=== PATIENT | male | born 1985 | race Caucasian/White ===

== ENCOUNTER 2024-04-24 18:42 | Emergency (ER) | payer OTHER, SELFPAY ==
[2024-04-24 18:48] VITALS: BP 117/89; PULSE 65; TEMP 36.8; O2SAT 95; BMI 30.4
--- NOTE | 2024-04-24 18:57 | CT_ITS ---
[address] [address] Patient Name: BEAU LEAVITT MRN: [id number] date: 1985 Sex: M Assigned Patient Location: Current Patient Location: Accession/Order Number: [id number] Exam Date: 04/24/2024 09:15 Report Date: 04/24/2024 20:33 At the request of: ANAMARIA MARTINEZ Procedure: CT soft tissue neck wo con EXAM: CT soft tissue neck wo con; [id number] REASON FOR EXAM: lump on right neck TECHNIQUE: Helical CT images of the neck obtained without IV contrast. Coronal and sagittal reconstructions were generated at the scanner. Dose reduction technique used: Automated exposure control and/or adjustment of the mA and/or kV according to patient size and/or use of iterative reconstruction technique. COMPARISON: None. FINDINGS: Note: Compared with contrasted CT exams, noncontrast images are less sensitive for the detection of various types of soft tissue, solid organ, and vascular pathologies. Visualized intracranial contents: Within normal limits. Orbits: Within normal limits. Sinuses: Moderate sized left mucus retention cyst versus polyp. No layering sinus fluid. Stunt Person space: Within normal limits. Buccal space: Within normal limits. Parotid space: No mass, stone, or acute inflammatory changes. Submandibular space: Within normal limits. Sublingual space: Within normal limits. Submental space: Within normal limits. Oral cavity: Within normal limits. Pharynx/Pharyngeal mucosal space: Incidentally noted small right posterolateral tracheal diverticulum at the thoracic inlet measuring up to 3 mm. Parapharyngeal space: Within normal limits. Retropharyngeal space: No abnormal thickening. Carotid space: Within normal limits. Perivertebral space: Within normal limits. Visceral space: -No thyroid nodules. Lymph nodes: No lymphadenopathy by size criteria. Superficial soft tissues of the neck: Within normal limits. Lung apices: Clear. Osseous: -No acute osseous abnormality. -No suspicious osseous lesion. -Maloccluded right maxillary molar. -Periapical lucency involving the single remaining left maxillary molar. Numerous cavities of the remaining mandibular teeth. -Mild cervical spondylosis likely resulting in mild spinal canal narrowing at C5-C6. No significant facet arthropathy or osseous foraminal narrowing. CT/CT soft tissue neck wo con IMPRESSION: Negative exam. No structural correlate for the right neck lump demonstrated. Electronically authenticated by: NOLA MCNEIL Date: 04/24/2024 20:33
--- NOTE | 2024-04-24 18:59 | ED.GENADUL1 ---
HPI HPI - General Adult General Chief complaint: Extremity Problem, Nontraumatic Stated complaint: Upper Pain Time Seen by Provider: 04/24/24 18:48 Source: patient Mode of arrival: walk-in Limitations: no limitations History of Present Illness HPI narrative: Patient is a 39-year-old male who presents to the emergency department for a 1 week history of pain intermittently associated with tingling to the right arm. He denies any change in symptoms today to prompt him to come to the ER. He states the discomfort is worse at nighttime. 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 He reports associated pain in the right trapezius area of the neck as well as a concerning lump to the right side of the neck. He has had no fevers, upper respiratory symptoms. No back pain, lower extremity pain or paresthesia. No urinary symptoms. No medications taken prior to arrival. He is right-hand dominant. Related Data Allergies Allergy/AdvReac Type Severity Reaction Status Date / Time No Known Drug Allergies Allergy Verified 04/24/24 18:48 Opioid HPI Opioid Management Most Recent Opioid Data: Last Pain Scale 8 04/24/24 19:34 Last MAR Pain Assessment 04/24/24 19:34 Review of Systems ROS Constitutional Denies: fever or chills Ears, nose, mouth, and throat Denies: throat pain or nasal congestion Respiratory Denies: shortness of breath Gastrointestinal Denies: nausea or vomiting Musculoskeletal Reports: neck pain and extremity pain; Denies: back pain Integumentary/Breast Denies: rash Neurological Reports: numbness in extremities; Denies: headache Hematologic/Lymphatic Denies: easy bruising or easy bleeding Exam Narrative Exam Narrative: Gen.: Awake, alert, in no distress Head: Normocephalic, atraumatic ENT: Moist mucous membranes, Palpable lymphadenopathy to the right neck with no overlying erythema or induration. Diffuse tenderness of the Paracervical muscles on the right side of the neck into the right trapezius. No obvious deformity. No posterior midline tenderness of the Respiratory: No respiratory distress Gastrointestinal: Abdomen is soft, nondistended and nontender to palpation Extremities: Moves extremities equally, Normal printed circuit boards contact printer strength in the bilateral hands, normal flexion and extension at the bilateral elbows with normal biceps tendon strength, normal shoulder abduction. Psych: Normal mood and affect Neuro: No focal neuro deficit Skin: Warm, dry, intact Constitutional Vital Signs, click to edit/add: Last Vital Signs Temp 98.3 F 04/24/24 18:48 Pulse 65 04/24/24 18:48 Resp 16 04/24/24 18:48 BP 117/89 04/24/24 18:48 Pulse Ox 95 04/24/24 18:48 O2 Del Method Room Air 04/24/24 18:48 Course Vital Signs Vital signs: Vital Signs Temperature 98.3 F 04/24/24 18:48 Pulse Rate 65 04/24/24 18:48 Respiratory Rate 16 04/24/24 18:48 Blood Pressure 117/89 04/24/24 18:48 Pulse Oximetry 95 04/24/24 18:48 Oxygen Delivery Method Room Air 04/24/24 18:48 Temperature 98.3 F 04/24/24 18:48 Pulse Rate 65 04/24/24 18:48 Respiratory Rate 16 04/24/24 18:48 Blood Pressure 117/89 04/24/24 18:48 Pulse Oximetry 95 04/24/24 18:48 Oxygen Delivery Method Room Air 04/24/24 18:48 Medical Decision Making MDM Narrative Medical decision making narrative: I evaluated the patient At initial interview, he has no focal neurodeficits and is able to move his extremities with no difficulty, no evidence of vascular compromise to the right upper extremity. Palpable lymphadenopathy noted to the right side of the neck. I recommended that we sent the patient for CT of the soft tissue of the neck with recon of the cervical spine for cervical radiculopathy. No evidence of infection to the right side of the neck. CT was obtained and the patient was medicated, however he eloped from the emergency department before his CT results posted. He and his family member eloped from the emergency department, he was not upset or angry, nursing staff was not made aware that he was going to leave the emergency department and he did not express any emergent need to leave the ER. Registration visualized the patient and his family member leaving and driving away from the hospital. SUPERVISED APC VISIT, PHYSICIAN ATTESTATION: Based on the medical record the care appears appropriate. ? Medical Records Medical records reviewed: Yes I reviewed the patient's medical records Discharge Plan Discharge Stand Alone Forms: Portal Instructions Chief Complaint: Extremity Problem, Nontraumatic Clinical Impression: Cervical radiculopathy Patient Disposition: Left Against Medical Advice Time of Disposition Decision: 20:23 Print Language: Occitan Referrals: Physician,Non-Staff, MD [Primary Care Provider] - 1 week
[2024-04-24] MEDS: KETOROLAC TROMETHAMINE 60 MG/2 ML VIAL IM (19:34)
[2024-04-24] MEDS: METHYLPREDNISOLONE SOD SUCC PF 125 MG/2 ML VIAL IM (19:34)
== END 2024-04-24 20:21 | disposition left against medical advice (07) ==
PROVIDERS: Emergency Provider Student in an Organized Health Care Education/Training Program
DX: M54.12 Radiculopathy, cervical region (principal)
CPT/HCPCS: 70490; 99285; J1885; J2919